=== PATIENT | female | born 1995 | race Caucasian/White ===

== ENCOUNTER 2018-12-16 11:22 | Emergency (ER) | payer MEDICAID ==
[2018-12-16] MEDS ORDERED: Cyclobenzaprine 10 MG Tab PO ONE (12:53)
[2018-12-16] MEDS ORDERED: Ketorolac 60 MG/2 ML SDV IM ONE (12:53)
--- NOTE | 2018-12-16 12:55 | EDM.PDOC ---
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 Left Middle Back Pain Score (Numeric/FACES): 10 - Related Data Allergies Allergy/AdvReac Type Severity Reaction Status Date / Time Sulfa (Sulfonamide Allergy Severe Cannot Verified 12/16/18 11:32 Antibiotics) Remember Home Meds: Home Meds Dextroamphetamine/Amphetamine [Adderall 10 mg Tablet] 10 mg PO DAILY 11/11/14 [ History] Norgestrel-Ethinyl Estradiol [[id number] Tablet] 1 tab PO DAILY 11/11/14 [ History] Lisdexamfetamine [Vyvanse] 70 mg PO DAILY 12/16/18 [History] Methocarbamol [Robaxin] 750 mg PO QID PRN 12/16/18 [History] Temazepam 30 mg PO BEDTIME 12/16/18 [History] hydrOXYzine HCl [hydrOXYzine] 10 mg PO DAILY 12/16/18 [History] Past Medical History HEENT History: Reports: Impaired Vision, Otitis Media Cardiovascular History: Reports: Arrhythmia Respiratory History: Reports: Asthma [employer] AP[employer]ENTICE History: Reports: None Musculoskeletal History: Reports: Other (See Below) Other Musculoskeletal History: hurt back from falling off a horse Neurological History: Reports: Other (See Below) Other Neuro History: Velocardiofacial syndrome Psychiatric History: Reports: ADD, Other (See Below) Other Psychiatric History: Varying behavioral and attending deficits, secondary to velocardiofacial syndrome - Past Surgical History HEENT Surgical History: Reports: Adenoidectomy, Other (See Below) Other HEENT Surgeries/Procedures: minnie hendrickson Social & Family History - Tobacco Use Smoking Status *Q: Never Smoker - Caffeine Use Caffeine Use: Reports: Soda - Recreational Drug Use Recreational Drug Use: No - Living Situation & Occupation Living situation: Reports: Single Occupation: Employed ED ROS GENERAL - Review of Systems Review Of Systems: See Below Respiratory: Reports: No Symptoms Cardiovascular: Reports: No Symptoms GI/Abdominal: Reports: No Symptoms Musculoskeletal: Reports: Back Pain Neurological: Reports: No Symptoms ED EXAM,LOWER BACK PAIN/INJURY - Physical Exam Exam: See Below Exam Limited By: No Limitations General Appearance: Alert, WD/WN, Mild Distress Respiratory/Chest: No Respiratory Distress Back Exam: Normal Inspection, Decreased Range of Motion, Muscle Spasm, Paraspinal Tenderness. No: CVA Tenderness (R), CVA Tenderness (L), Vertebral Tenderness Course - Vital Signs Last Recorded V/S: Last Vital Signs Temp 98.6 F 12/16/18 11:28 Pulse 95 12/16/18 12:52 Resp 16 12/16/18 11:28 BP 136/80 12/16/18 12:52 Pulse Ox 94 L 12/16/18 12:52 - Orders/Labs/Meds Meds: Medications Discontinued Medications Generic Name Dose Route Start Last Admin Trade Name Freq PRN Reason Stop Dose Admin Cyclobenzaprine HCl 10 mg 12/16/18 12:53 12/16/18 13:01 Flexeril PO 12/16/18 12:54 10 mg ONETIME ONE Administration Ketorolac Tromethamine 60 mg 12/16/18 12:53 12/16/18 13:03 Toradol IM 12/16/18 12:54 60 mg ONETIME ONE Administration Departure - Departure Time of Disposition: 14:00 Disposition: Home, Self-Care 01 Condition: Fair Clinical Impression: Low back pain Qualifiers: Chronicity: acute Back pain laterality: left Sciatica presence: without sciatica Qualified Code(s): M54.5 - Low back pain - Discharge Information Instructions: Back Injury Prevention, [id number], Muscle Strain, [id number] , Chronic Back Pain Referrals: Susu Archibald PA [Primary Care Provider] - Forms: ED Department Discharge Additional Instructions: Use tylenol and motrin as needed for the back pain. Follow up with primary care provider if not improving. Return as needed. - Assessment/Plan Assessment:: Assessment Acuity = acute Site and laterality = low back pain Etiology = secondary lifting injury Manifestations = none Location of injury = Home Lab values = none Plan Good improvement with Toradol and Flexeril will continue to use the Tylenol or Motrin as needed for pain control in combination with the Robaxin follow-up primary care in 3-5 days if no improvement This note was dictated using [employer] voice recognition software please call with any questions on syntax or grammar.
[2018-12-16 12:56] VITALS: BP 136/80
== END 2018-12-16 14:04 | disposition home or self-care (01) ==
LOC: JP.ED 11:22
DX: M54.5 Low back pain (principal); Z88.2 Allergy status to sulfonamides; Z79.899 Other long term (current) drug therapy
CPT/HCPCS: 96372; 99283; A9270; J1885

== ENCOUNTER 2024-08-01 14:40 | Emergency (ER) | payer MEDICARE, MEDICAID ==
[2024-08-01] MEDS: Ketorolac 30 MG/ML SDV IM ONE (16:49)
[2024-08-01 17:30] VITALS: BP 107/66; PULSE 97
== END 2024-08-01 17:31 | disposition home or self-care (01) ==
LOC: JP.ED 14:40
DX: M53.3 Sacrococcygeal disorders, not elsewhere classified (principal); J45.909 Unspecified asthma, uncomplicated; Z88.8 Allergy status to other drugs, medicaments and biological substances; Z88.2 Allergy status to sulfonamides; Z91.040 Latex allergy status; Z79.899 Other long term (current) drug therapy
CPT/HCPCS: 96372; 99283; J1885

== ENCOUNTER 2024-08-17 12:23 | Emergency (ER) | payer MEDICARE, MEDICAID ==
[2024-08-17] MEDS: Cyclobenzaprine 10 MG Tab PO ONE (14:18)
[2024-08-17] MEDS: Ketorolac 30 MG/ML SDV IM ONE (14:25)
[2024-08-17] MEDS: HYDROmorphone 1 MG/ML Syringe IM ONE (16:11)
[2024-08-17 16:15] VITALS: BP 112/61; PULSE 96
== END 2024-08-17 16:35 | disposition home or self-care (01) ==
LOC: JP.ED 12:23
DX: S22.089A Unspecified fracture of T11-T12 vertebra, initial encounter for closed fracture (principal); J45.909 Unspecified asthma, uncomplicated; Z88.2 Allergy status to sulfonamides; Z88.8 Allergy status to other drugs, medicaments and biological substances; Z91.040 Latex allergy status; Z79.899 Other long term (current) drug therapy; W18.30XA Fall on same level, unspecified, initial encounter
CPT/HCPCS: 72100; 96372; 99283; A9270; J1171; J1885

== ENCOUNTER 2024-11-14 08:24 | Emergency (ER) | payer MEDICARE, MEDICAID ==
[2024-11-14 08:50] VITALS: BP 136/88; PULSE 105
[2024-11-14] MEDS ORDERED: Naloxone 0.4 MG/ML SDV IVPUSH PRN (09:10)
[2024-11-14 09:29] LABS: APPEARANCE,URINE SLIGHTLY CLOUDY (CLEAR); GLUCOSE,URINE NEGATIVE (NEGATIVE); OCCULT BLOOD,URINE NEGATIVE (NEGATIVE)
[2024-11-14 09:34] LABS: SQUAMOUS EPITHELIAL CELLS,UR MODERATE /HPF; UROTHELIAL CELLS,URINE NOT SEEN /HPF
== END 2024-11-14 10:30 | disposition home or self-care (01) ==
LOC: JP.ED 08:24
DX: M54.50 Low back pain, unspecified (principal); N39.0 Urinary tract infection, site not specified; Z88.2 Allergy status to sulfonamides; Z79.899 Other long term (current) drug therapy
CPT/HCPCS: 81001; 96372; 99283; A9270; J1171

== ENCOUNTER 2025-01-01 09:39 | Emergency (ER) | payer MEDICARE, MEDICAID ==
[2025-01-01 10:05] VITALS: BP 115/65; PULSE 95
[2025-01-01 10:10] LABS: APPEARANCE,URINE SLIGHTLY CLOUDY (CLEAR); GLUCOSE,URINE NEGATIVE (NEGATIVE); OCCULT BLOOD,URINE NEGATIVE (NEGATIVE)
[2025-01-01 10:16] LABS: SQUAMOUS EPITHELIAL CELLS,UR FEW /HPF; UROTHELIAL CELLS,URINE NOT SEEN /HPF
[2025-01-01 11:02] LABS: AMPHETAMINES SCREEN, URINE PRESUMPTIVE POSITIVE (NEGATIVE); METHADONE SCREEN, URINE NEGATIVE (NEGATIVE); METHAMPHETAMINES SCREEN, URINE NEGATIVE (NEGATIVE); OXYCODONE SCREEN,URINE NEGATIVE (NEGATIVE); PROPOXYPHENE SCREEN,URINE NEGATIVE (NEGATIVE); THC SCREEN,URINE 50 NG/ML NEGATIVE (NEGATIVE)
[2025-01-01] MEDS: Ketorolac 30 MG/ML SDV IM ONE (11:51)
== END 2025-01-01 12:12 | disposition home or self-care (01) ==
LOC: JP.ED 09:39
DX: M54.50 Low back pain, unspecified (principal); J45.909 Unspecified asthma, uncomplicated; Z86.16 Personal history of COVID-19; Z88.2 Allergy status to sulfonamides; Z88.8 Allergy status to other drugs, medicaments and biological substances; Z79.899 Other long term (current) drug therapy
CPT/HCPCS: 80305; 81001; 96372; 99284; A9270; J1885